=== PATIENT | female | born 1975 | race Hispanic/Latino ===

== ENCOUNTER 2018-04-06 16:37 | Emergency (ER) | payer OTHER ==
[2018-04-06 17:05] LABS: Bilirubin Negative (Negative); Blood, Urine Trace (Negative); Clarity CLEAR (Clear); Glucose, Urine (Dipstick) Negative (Negative); Leukocyte Negative (Negative); Nitrite Negative (Negative); Protein, Urine (Dipstick) Negative (Neg-Trace); Specific Gravity, Urine 1.017 (1.002-1.036); Urobilinogen 0.2 mg/dL (0.2-1.0); pH, Urine 7.5 (5.0-9.0)
[2018-04-06 17:11] LABS: Bacteria/HPF None Seen HPF (None Seen); Hyaline Casts/LPF 4-6 HYALINE CAST LPF (0-3 Hyaline); Squamous Epithelial 0-3 HPF (0-3); WBC/HPF None Seen HPF (0-3)
[2018-04-06 17:22] LABS: #Basophils 0.1 thou/uL (0.0-0.2); #Eosinphils 0.2 thou/uL (0.0-0.7); #Lymphocytes 2.3 thou/uL (1.20-3.40); #Monocytes 0.5 thou/uL (0.11-0.59); #Neutrophils 5.1 thou/uL (1.40-6.50); %Basophils 0.8 % (0.0-1.0); %Eosinophils 2.5 % (0.0-10.0); %Lymphocytes 28.8 % (21.0-51.0); %Monocytes 5.5 % (0.0-10.0); %Neutrophils 62.3 % (42.0-75.0); Hemoglobin 12.8 g/dL (12.0-16.0); Mean Corpuscular HGB CONC 33.7 g/dL (32.0-36.0); Mean Corpuscular Hemoglobin 31.8 pg (27.0-31.0); Mean Corpuscular Volume 94.4 fL (78.0-98.0); Mean Platelet Volume 9.1 fL (7.4-10.4); Platelet Count 233 thou/uL (130-400); RBC Distribution Width 12.5 % (11.5-14.5); Red Blood Cell (RBC) Count 4.03 mill/uL (4.20-5.40); White Blood Cell (WBC) Count 8.1 thou/uL (4.8-10.8)
[2018-04-06] MEDS ORDERED: Ondansetron HCl/PF 4 MG/2 ML Vial ONE (17:39)
[2018-04-06 17:44] LABS: ALT (SGPT) 13 U/L (8-55); AST (SGOT) 15 U/L (5-34); Albumin 4.4 g/dL (3.5-5.0); Alkaline Phosphatase 100 U/L (40-150); Anion Gap 12 mmol/L (10-20); BUN (Urea Nitrogen) 13 mg/dL (7.0-18.7); Bilirubin, Total 0.3 mg/dL (0.2-1.2); Calc. Creatinine Clearance 0 mL/min (70-130); Calcium 9.3 mg/dL (7.8-10.44); Carbon Dioxide 23 mmol/L (22-29); Chloride 107 mmol/L (98-107); Estimated GFR-MDRD 83; Globulin 3.4 g/dL (2.4-3.5); Glucose 89 mg/dL (70-105); Lipase 32 U/L (8-78); Potassium 3.9 mmol/L (3.5-5.1); Protein, Total 7.8 g/dL (6.0-8.3); Sodium 138 mmol/L (136-145)
--- NOTE | 2018-04-06 18:57 | ULT ---
GALLBLADDER ULTRASOUND: HISTORY: Right upper quadrant pain. FINDINGS: Real-time imaging of the right upper quadrant shows a contracted gallbladder with what appears to be a solitary large stone. The gallbladder wall is 3 mm. The common duct is 4 mm. The liver has some mild increased echogenicity, suggesting fatty change. The right kidney is normal in size and is not obstructed. The pancreas is obscured. Small hepatic cyst, measuring 1.5 cm, is incidentally noted. IMPRESSION: Gallstone within a contracted gallbladder. POS: [facility]
--- NOTE | 2018-04-06 19:04 | CT ---
CT ABDOMEN AND PELVIS PERFORMED WITHOUT CONTRAST ENHANCEMENT: HISTORY: Right flank pain. FINDINGS: ABDOMEN: The lung bases are clear of infiltrates. The liver, spleen, and pancreas regions appear un remarkable on this noncontrast study, other than a hypodensity within the right lobe of the liver, wh ich is statistically most likely a cyst. There is a large gallstone noted. The right and left adrenal glands and the right and left kidneys are normal in size. There is no yemi dence of obstruction. No renal or ureteral calculus is seen. There is no significant periaortic or mesenteric adenopathy. PELVIS: There is a fat-containing paraumbilical hernia noted. There is an enlarged, slightly lobula storm uterus, which would suggest probable fibroids. This would be better investigated with a nonemerg ent pelvic ultrasound. The appendix is normal. No free fluid. IMPRESSION: 1. Gallstone. 2. No renal or ureteral calculi. Normal appendix. 3. Slightly enlarged uterus, probably on the basis of fibroids. POS: [facility]
[2018-04-06] MEDS ORDERED: Morphine 4 MG/ML VIAL ONE (20:55)
--- NOTE | 2018-04-06 20:57 | ULT ---
PELVIC ULTRASOUND: HISTORY: Pelvic pain. TECHNIQUE: Real-time imaging of the pelvis was obtained transabdominally. FINDINGS: This shows a normal appearing uterus, measuring 8.1 cm in length. The endometrium is in the 3 to 4 m m range. The right and left adnexa appear normal in size and appearance. There is a small, cystic area, measu ring 1.5 cm in size, close to the left ovary. This is of doubtful significance and may represent ignacio e loculated fluid. On Doppler evaluation with spectral analysis, normal flow is shown to the adnexa. IMPRESSION: Essentially unremarkable pelvic ultrasound. POS: [facility]
[2018-04-06 21:42] LABS: Pregnancy Test - Urine (BHCG) Negative (Negative); Pregu Control Background? CLEAR/WHITE (CLR/WHITE); Pregu Control Bar Appear? YES (CONTROL BAR); Specific Gravity 1.017 (1.002-1.036)
== END 2018-04-06 22:25 | disposition home or self-care (01) ==
LOC: ERS 16:37
DX: R10.12 Left upper quadrant pain (principal); R10.11 Right upper quadrant pain; E78.5 Hyperlipidemia, unspecified; F32.9 Major depressive disorder, single episode, unspecified
CPT/HCPCS: 74176; 76705; 76856; 80053; 81003; 81015; 81025; 83690; 85025; 93976; 94760; 96361; 96374; 96375; 96376; J2270; J2405

== ENCOUNTER 2018-04-30 11:16 | Outpatient (CLI) | payer OTHER ==
[2018-04-30 12:49] LABS: #Eosinphils 0.2 thou/uL (0.0-0.7); #Lymphocytes 1.6 thou/uL (1.20-3.40); #Monocytes 0.3 thou/uL (0.11-0.59); #Neutrophils 4.5 thou/uL (1.40-6.50); %Basophils 0.5 % (0.0-1.0); %Eosinophils 3.5 % (0.0-10.0); %Lymphocytes 24.3 % (21.0-51.0); %Monocytes 4.7 % (0.0-10.0); Hemoglobin 12.7 g/dL (12.0-16.0); Mean Corpuscular HGB CONC 32.9 g/dL (32.0-36.0); Mean Corpuscular Hemoglobin 31.3 pg (27.0-31.0); Mean Corpuscular Volume 95.3 fL (78.0-98.0); Mean Platelet Volume 9.5 fL (7.4-10.4); Platelet Count 203 thou/uL (130-400); RBC Distribution Width 12.2 % (11.5-14.5); Red Blood Cell (RBC) Count 4.04 mill/uL (4.20-5.40); White Blood Cell (WBC) Count 6.7 thou/uL (4.8-10.8)
[2018-04-30 13:14] LABS: ALT (SGPT) 11 U/L (8-55); AST (SGOT) 14 U/L (5-34); Albumin 4.2 g/dL (3.5-5.0); Alkaline Phosphatase 89 U/L (40-150); Anion Gap 10 mmol/L (10-20); BUN (Urea Nitrogen) 9 mg/dL (7.0-18.7); Bilirubin, Direct 0.2 mg/dL (0.1-0.3); Bilirubin, Total 0.8 mg/dL (0.2-1.2); Calc. Creatinine Clearance 0 mL/min (70-130); Calcium 9.1 mg/dL (7.8-10.44); Carbon Dioxide 25 mmol/L (22-29); Chloride 108 mmol/L (98-107); Estimated GFR-MDRD Greater than 90; Glucose 81 mg/dL (70-105); Potassium 3.7 mmol/L (3.5-5.1); Protein, Total 7.4 g/dL (6.0-8.3); Sodium 139 mmol/L (136-145)
== END 2018-04-30 11:17 | disposition home or self-care (01) ==
LOC: LABBT 11:16
PROVIDERS: ATTEND Surgery
DX: Z01.812 Encounter for preprocedural laboratory examination (principal); K80.20 Calculus of gallbladder without cholecystitis without obstruction
CPT/HCPCS: 80048; 80076; 85025

== ENCOUNTER 2018-05-02 10:19 | Day surgery (SDC) | payer OTHER ==
[2018-04-30 11:35] VITALS: BMI 33.1
[2018-05-02] MEDS ORDERED: cefOXitin 2 GM VIAL ONE (12:01)
[2018-05-02] MEDS ORDERED: Indocyanine Green 25 MG/10 ML VIAL ONE (12:28)
[2018-05-02] MEDS ORDERED: Bupivacaine/Epinephrine 0.25% 30 ML VIAL ONE (13:47)
[2018-05-02] MEDS ORDERED: Midazolam HCl 2 mg/2 ml Vial ONE (13:49)
[2018-05-02] MEDS ORDERED: Fentanyl 250 MCG/5 ML VIAL ONE (13:49)
[2018-05-02] MEDS ORDERED: Glycopyrrolate 0.2 MG/ML 5 ML SYRINGE ONE (14:30)
[2018-05-02] MEDS ORDERED: Ketorolac Tromethamine 30 MG/ML VIAL ONE (14:30)
[2018-05-02] MEDS ORDERED: Lidocaine 1% PF 5 ML VIAL ONE (14:30)
[2018-05-02] MEDS ORDERED: Ondansetron PF 4 MG/2 ML Vial ONE (14:30)
[2018-05-02] MEDS ORDERED: Dexamethasone 20 MG/5 ML VIAL ONE (14:30)
[2018-05-02] MEDS ORDERED: PROPOFOL 200 MG/20 ML VIAL ONE (14:30)
[2018-05-02] MEDS ORDERED: Fentanyl 100 MCG/2 ML VIAL ONE ×3 (15:13→16:03)
[2018-05-02] MEDS ORDERED: Meperidine HCl/PF 25 MG/ML VIAL ONE (15:20)
[2018-05-02] MEDS ORDERED: diphenhydrAMINE 50 MG/ML VIAL ONE (15:50)
[2018-05-02] MEDS ORDERED: HYDROcodone/Acetaminophen 5/325 mg Tablet ONE (17:08)
--- NOTE | 2018-05-05 11:44 | OP ---
DATE OF PROCEDURE: 05/02/2018 PREOPERATIVE DIAGNOSIS: Symptomatic gallstones. POSTOPERATIVE DIAGNOSIS: Symptomatic gallstones. PROCEDURE: Da Lanette robotic laparoscopic cholecystectomy. SURGEON: Dr. Gee Min ANESTHESIA: General. ESTIMATED BLOOD LOSS: Minimal. COMPLICATIONS: None. SPECIMEN: Gallbladder. FINDINGS: Chronic cholecystitis. PROCEDURE IN DETAIL: The patient was taken to the operating room and placed supine on the table. Af ter general anesthetic was obtained, arms are draped at the side. The abdomen is prepped and draped in a sterile fashion. Curved incision made below the umbilicus, cut dissect down to and score the fa scia. Abdominal cavity entered bluntly using a Marizol clamp. Holding stitch of PDS placed on each si de of the fascia. Rocha trocar was placed. High-flow pneumoperitoneum was obtained. Left and righ t abdominal robot 8 mm trocars as well as a right subcostal 5 mm trocar placed under direct visualiza tion. The lateral 5 mm trocars used to raise the gallbladder up over the liver. The surgeon goes to the console. All ports were docked to the robot. The peritoneum was taken down anteriorly and post eriorly. The critical view triangle was seen showing only the cystic duct and cystic artery branchin g from medial to lateral no other branching structures. Two clips were placed proximally on the cyst ic duct and one distally was cut using the robotic cautery. The artery was taken in the same way. C autery was used to dissect the gallbladder out of the gallbladder fossa. All ports are undocked from the robot. The surgeon scrubs back into the bedside. The gallbladder was placed in an Endo catch b ag and brought out through the Omar. All port sites are infiltrated using local anesthetic. All p orts were removed under camera visualization. Pneumoperitoneum was let down. PDS was used to close the fascial defect. All incisions are irrigated and closed using 4-0 Monocryl and Dermabond. The pa tient en route to recovery in stable condition. All instrument counts, needle counts, lap counts wer e correct.
== END 2018-05-02 18:03 | disposition home or self-care (01) ==
LOC: SDC 10:19
PROVIDERS: ATTEND Surgery
PROC: 0FT44ZZ Resection of Gallbladder, Percutaneous Endoscopic Approach (ICD-10-PCS; principal; 2018-05-02)
DX: K80.10 Calculus of gallbladder with chronic cholecystitis without obstruction (principal); E78.5 Hyperlipidemia, unspecified; Z79.899 Other long term (current) drug therapy
CPT/HCPCS: 88304; 96374; 96375; 96376; J0694; J1100; J1200; J1885; J2001; J2175; J2250; J2405; J2704; J3010

== ENCOUNTER 2021-04-21 18:12 | Emergency (ER) | payer OTHER, SELFPAY ==
[2021-04-21] MEDS ORDERED: Meclizine HCl 25 MG TAB ONE (21:14)
== END 2021-04-21 22:15 | disposition home or self-care (01) ==
LOC: ERS 18:12
DX: R51.9 Headache, unspecified (principal); R29.700 NIHSS score 0; E78.5 Hyperlipidemia, unspecified
CPT/HCPCS: 70450; 93005